=== PATIENT | female | born 1960 | race Caucasian/White ===

== ENCOUNTER 2017-10-12 10:16 | Emergency (ER) | payer SELFPAY ==
[~2017-10-12] VITALS: Ht 152.4 cm; Wt 47.5 kg
[~2017-10-12 10:16] MED LIST: DIAZ10 PO; PAXI10TA8 PO; PROC10TA PO; PROM50TA PO; TRAZ150T75 PO; XANA1TAB2 PO; ZANTTAB9 PO
[2017-10-12 10:21] VITALS: BP 124/74; PULSE 111; RESP 18; TEMP 100; O2SAT 99
[2017-10-12 10:39] VITALS: PULSE 107
--- NOTE | 2017-10-12 10:44 | PD ---
HPI Chief Complaint: Fall Time Seen by Provider: 10:36 Travel History International Travel<30 days: No Contact w/Intl Traveler<30days: No Traveled to known affect area: No History of Present Illness HPI 57-year-old female with a history of anxiety presents emergency department for evaluation of right shoulder, right elbow, and right knee pain after a fall that occurred yesterday. Says that she was sitting when her dog left for a cat pulling her to the ground. Says that she scraped her cheek however, denies headache, pain, blurred vision, neck pain or back pain. Says that she came in today because the shoulder pain is not getting any better and it is significant. Patient points to the anterior superior aspect of the shoulder and says it radiates into her deltoid region. She also points to the lateral aspect of her elbow. Says her shoulder pain is worse with movement that decreases with rest. Pain is moderate in severity. She denies numbness or change with extremity. She says that her knee feels mildly painful near the kneecap that is worse with movement and decreases with rest. Patient was ambulatory to emergency department today and her main concern again is her right shoulder. PFSH Past Medical History Arthritis: No Asthma: No Autoimmune Disease: No Blood Disorders: No Bipolar Disorder: Yes Anxiety: Yes (HISTORY OF PANIC ATTACKS) Depression: Yes Heart Rhythm Problems: No Cancer: No Cardiovascular Problems: No High Cholesterol: No Chemotherapy: No Chest Pain: No Congestive Heart Failure: No COPD: No Cerebrovascular Accident: No Diabetes: No Endocrine: No Gastrointestinal Disorders: No Glaucoma: No Genitourinary: No Headaches: Yes Hypertension: Yes Musculoskeletal: Yes (CHRONIC BACK PAIN) Neurologic: Yes Psychiatric: Yes Respiratory: No Myocardial Infarction: No Radiation Therapy: No Seizures: Yes Sleep Apnea: No Thyroid Disease: No ?: Unknown LMP: stopped 25 years ago Menopausal: Yes Ovarian Cysts: Yes Past Surgical History Abdominal Surgery: No AICD: No Cardiac Surgery: No Section: Yes (1988) Ear Surgery: No Endocrine Surgery: No Eye Surgery: No Genitourinary Surgery: No Gynecologic Surgery: Yes (, CYSTS REMOVED ON RIGHT OVARY) Neurologic Surgery: No Oral Surgery: No Pacemaker: No Thoracic Surgery: No Other Surgery: Yes (ONE IN 1993) Social History Alcohol Use: Yes () Tobacco Use: Yes (TRYING TO QUIT) Substance Use: No Allergies-Medications (Allergen,Severity, Reaction): Coded Allergies: No Known Allergies (Verified Adverse Reaction, Unknown, 10/12/17) Reported Meds & Prescriptions Reported Meds & Active Scripts Active Hydrocodone-Acetaminophen 5-325 mg Tab 1 Tab PO Q6H PRN 3 Days Phenergan (Promethazine HCl) 50 Mg Tab 50 Mg PO Q6H PRN Reported Paxil (Paroxetine HCl) Unknown Strength Tab 1 Tab PO DAILY Valium (Diazepam) 10 Mg Tab 10 Mg PO HS Trazodone (Trazodone HCl) 150 Mg Tab 150 Mg PO HS Xanax (Alprazolam) 1 Mg Tab 1 Mg PO QID PRN Review of Systems Except as stated in HPI: all other systems reviewed are Neg Physical Exam Narrative GENERAL: Well-nourished, well-developed patient, in NAD SKIN: Focused skin assessment warm/dry. No rashes or lesions. HEAD: Normocephalic. Leg abrasion over the right anterior cheek without underlying tenderness to palpation. Orbit and facial bones without tenderness palpation, deformities, ecchymosis. EYES: No scleral icterus. No injection or drainage. PERRLA, EOMI THROAT: No pharyngeal injection, exudates, or tonsillar hypertrophy. Airway is patent. NECK: Supple, trachea midline. No JVD or lymphadenopathy. No meningismus. No midline tenderness CARDIOVASCULAR: Regular rate and rhythm without murmurs, gallops, or rubs. RESPIRATORY: Breath sounds equal bilaterally. No accessory muscle use. No wheezes, rales, or rhonchi MUSCULOSKELETAL: No cyanosis, or edema. Right shoulder-tenderness palpation of the AC joint and posterior aspect of the musculature of her deltoid and tricep muscle. Ecchymosis over the bicep region , no deformities or crepitus noted. Neurovascularly intact right upper extremity Right elbow-no tenderness palpation the lateral epicondyles without crepitus or deformities. Neurovascular intact. BACK: No CVA tenderness. No rash. No point tenderness on palpation of the spine. Data Data Last Documented VS Vital Signs Date Time Temp Pulse Resp B/P (MAP) Pulse Ox O2 Delivery O2 Flow Rate FiO2 10/12/17 11:47 20 10/12/17 10:39 107 10/12/17 10:21 100.0 124/74 (91) 99 Orders Orders Acetamin-Hydrocod 325-5 Mg ([place] 5-325 (10/12/17 10:45) Shoulder, Complete (>2vws) (10/12/17 ) Elbow, Complete (4 Vws) (10/12/17 ) Mandatory Outpatient Referral (10/12/17 11:37) [facility] Medical Decision Making Medical Screen Exam Complete: Yes Emergency Medical Condition: Yes Differential Diagnosis Right shoulder rotator cuff injury, contusion, fracture. Right elbow contusion , fracture, abrasion. Right facial abrasion, avulsion, laceration, fracture Narrative Course 57-year-old female presents emergency department for evaluation of right shoulder, right elbow, right knee pain that started last night. Says that she was in a seated position when she was lunged forward by her dog landing on her right shoulder and subsequently hit her cheek. We discussed imaging of her head , neck, facial bones however, patient would like to defer. I am comfortable this is patient does not take any blood thinners. She denies any numbness or tingling of the extremities. She denies neck or back pain. She denies headache , blurred vision. She has no tenderness of her orbits, head, or neck. Vital signs demonstrate temperature 100.0, heart rate 111, blood pressure stable. Patient says that she smoked a cigarette just prior to coming to the emergency department today. Patient also has a history of anxiety and suspect that some of this is related. She denies subjective fevers or chills. I suspect that it is a warm day and her temperature is elevated because of this. X-rays ordered to rule out fracture. Hydrocodone for pain in the emergency department today. Last Impressions Shoulder X-Ray 10/12/17 0000 Signed Impressions: CONCLUSION: Proximal humeral fracture. Elbow X-Ray 10/12/17 0000 Signed Impressions: CONCLUSION: Unremarkable study. Patient will be discharged with hydrocodone. Mandatory referral placed. She is advised to follow-up with her primary care physician. Advised to call Dr. Darby's office she does not hear from them in 1-2 days. Diagnosis Primary Impression: Facial abrasion Qualified Codes: S00.81XA - Abrasion of other part of head, initial encounter Additional Impressions: Humerus fracture Qualified Codes: S42.201A - Unspecified fracture of upper end of right humerus , initial encounter for closed fracture Elbow contusion Qualified Codes: S50.01XA - Contusion of right elbow, initial encounter Referrals: Jhon Weller MD Primary Care Physician Patient Instructions: Arm Fracture in Adults (ED), General Instructions Additional Instructions: Use ice or heat for symptom relief. If no contraindications, you may use Tylenol or Motrin per package instructions for your pain. Use the sling as prescribed today. You may remove for showering however, I recommend leaving on until recommended removal by orthopedic physician. If symptoms persist or worsen, return to the emergency department. Follow up with your primary care physician within 2 days. If you do not get a phone call from the orthopedic physician within 1-2 days, I recommend you call them. Scripts Hydrocodone-Acetaminophen (Hydrocodone-Acetaminophen) 5-325 mg Tab 1 TAB PO Q6H Y for PAIN for 3 Days, #12 TAB 0 Refills Prov: Jacob Locke MD 10/12/17 Disposition: 01 DISCHARGE HOME Condition: Stable Sharifa Agrawal Oct 12, 2017 10:44
[2017-10-12] MEDS ORDERED: ACETAMINOPHEN/HYDROcodone 325 MG/5 MG TAB PO ONE (10:45)
--- NOTE | 2017-10-12 11:25 | RADRPT ---
EXAM DATE: 10/12/2017 11:14 AM EDT AGE/SEX: 57 years / Female INDICATIONS: Pulled down by the dog. CLINICAL DATA: This is the patient's initial encounter. Patient reports that signs and symptoms have been present for 1 day and indicates a pain score of 10/10. MEDICAL/SURGICAL HISTORY: None. None. COMPARISON: No prior [facility] exams available for comparison. FINDINGS: There is a complete fracture of right proximal humerus underneath the surgical neck with mild displac ement. There is no dislocation. CONCLUSION: Proximal humeral fracture. Electronically signed by: Chato Jameson MD 10/12/2017 11:23 AM EDT
--- NOTE | 2017-10-12 11:30 | RADRPT ---
EXAM DATE: 10/12/2017 11:18 AM EDT AGE/SEX: 57 years / Female INDICATIONS: Pulled down by a dog. CLINICAL DATA: This is the patient's initial encounter. Patient reports that signs and symptoms have been present for 1 day and indicates a pain score of 8/10. MEDICAL/SURGICAL HISTORY: None. None. COMPARISON: No prior [facility] exams available for comparison. FINDINGS: No definite fractures, or dislocations are identified. No definite lytic or sclerotic les ion is seen. CONCLUSION: Unremarkable study. Electronically signed by: Chato Jameson MD 10/12/2017 11:28 AM EDT
[2017-10-12] MEDS ORDERED: HYDR-3516 PO (11:38)
[2017-10-12 11:47] VITALS: RESP 20
== END 2017-10-12 12:22 | disposition home or self-care (01) ==
LOC: NEPK 10:16
DX: S00.81XA Abrasion of other part of head, initial encounter (principal); S42.201A Unspecified fracture of upper end of right humerus, initial encounter for closed fracture; S50.01XA Contusion of right elbow, initial encounter; M25.561 Pain in right knee; W19.XXXA Unspecified fall, initial encounter
CPT/HCPCS: 73030; 73080; 99283

== ENCOUNTER 2017-10-15 12:15 | Emergency (ER) | payer MEDICAID ==
[~2017-10-15] VITALS: Ht 152.4 cm; Wt 50.0 kg
[~2017-10-15 12:15] MED LIST changes: +HYDR-3516 PO; -PROC10TA PO; -ZANTTAB9 PO
[2017-10-15 12:20] VITALS: BP 126/76; PULSE 109; RESP 18; TEMP 99; O2SAT 98
--- NOTE | 2017-10-15 12:39 | PD ---
HPI Chief Complaint: Pain: Acute or Chronic Time Seen by Provider: 12:34 Travel History International Travel<30 days: No Contact w/Intl Traveler<30days: No Traveled to known affect area: No History of Present Illness HPI 57-year-old female presents emergency department for evaluation right arm pain. Patient is diagnosed with a proximal humerus fracture 3 days ago. She has been out of her Percocet. Patient states she is also noticed that her right hip is painful, exacerbated with ambulation or flexion. She does not recall any new injury but states her arm was so painful the other day when she was here , she did not even notice her hip. She denies any fever or chills. She is unable to get into orthopedic surgery until . She has no other symptoms to report at this time. PFSH Past Medical History Arthritis: No Asthma: No Autoimmune Disease: No Blood Disorders: No Bipolar Disorder: Yes Anxiety: Yes (HISTORY OF PANIC ATTACKS) Depression: Yes Heart Rhythm Problems: No Cancer: No Cardiovascular Problems: No High Cholesterol: No Chemotherapy: No Chest Pain: No Congestive Heart Failure: No COPD: No Cerebrovascular Accident: No Diabetes: No Endocrine: No Gastrointestinal Disorders: No Glaucoma: No Genitourinary: No Headaches: Yes Hypertension: Yes Musculoskeletal: Yes (CHRONIC BACK PAIN) Neurologic: Yes Psychiatric: Yes Respiratory: No Myocardial Infarction: No Radiation Therapy: No Seizures: Yes Sleep Apnea: No Menopausal: Yes Ovarian Cysts: Yes Past Surgical History Abdominal Surgery: No Cardiac Surgery: No Section: Yes (1988) Ear Surgery: No Endocrine Surgery: No Eye Surgery: No Genitourinary Surgery: No Gynecologic Surgery: Yes (, CYSTS REMOVED ON RIGHT OVARY) Neurologic Surgery: No Oral Surgery: No Pacemaker: No Thoracic Surgery: No Other Surgery: Yes (ONE IN 1993) Social History Alcohol Use: Yes ([facility]) Tobacco Use: Yes Substance Use: No Allergies-Medications (Allergen,Severity, Reaction): Coded Allergies: No Known Allergies (Verified Adverse Reaction, Unknown, 10/12/17) Reported Meds & Prescriptions Reported Meds & Active Scripts Active [place] (Hydrocodone-Acetaminophen) 5 Mg-325 Mg Tab 1 Tab PO Q6H PRN Reported Paxil (Paroxetine HCl) Unknown Strength Tab 1 Tab PO DAILY Valium (Diazepam) 10 Mg Tab 10 Mg PO HS Xanax (Alprazolam) 1 Mg Tab 1 Mg PO QID PRN Review of Systems Except as stated in HPI: all other systems reviewed are Neg Physical Exam Narrative GENERAL: Well-nourished, well-developed female patient in no acute distress SKIN: Focused skin assessment warm/dry. Ecchymosis on the right posterior hip. There is also some ecchymosis on the right proximal upper extremity. HEAD: Normocephalic. EYES: No scleral icterus. No injection or drainage. NECK: Supple, trachea midline. No JVD or lymphadenopathy. CARDIOVASCULAR: Regular rate and rhythm without murmurs, gallops, or rubs. RESPIRATORY: Breath sounds equal bilaterally. No accessory muscle use. GASTROINTESTINAL: Abdomen soft, non-tender, nondistended. MUSCULOSKELETAL: No cyanosis. Mild edema of the right distal lower extremity. Distal pulses are palpable. Patient flex and extend all the digits of the affected extremity. Sensation is intact. Sling is in place. BACK: Nontender without obvious deformity. No CVA tenderness. Data Data Last Documented VS Vital Signs Date Time Temp Pulse Resp B/P (MAP) Pulse Ox O2 Delivery O2 Flow Rate FiO2 10/15/17 12:20 99.0 109 18 126/76 (93) 98 Orders Orders Hip, Uni(Ap&Lat) W Ap Pelvis (10/15/17 ) Ketorolac Inj (Toradol Inj) (10/15/17 12:45) Acetamin-Hydrocod 325-5 Mg ([place] 5-325 (10/15/17 12:45) Ed Discharge Order (10/15/17 13:16) [facility] Medical Decision Making Medical Screen Exam Complete: Yes Emergency Medical Condition: Yes Medical Record Reviewed: Yes Differential Diagnosis Fracture pain versus reinjury versus contusion versus sprain versus narcotic seeking Narrative Course 57-year-old female presents emergency department requesting more pain control for her proximal humerus fracture. Patient appears without distress. The arm is neurovascularly intact. X-ray imaging of the hip is negative. I discussed the patient with my attending. She will be given 12 Lortab. She is instructed to keep her appointment with orthopedic surgery. She agrees to return immediately with acute worsening of symptoms. Diagnosis Primary Impression: Arm pain, right Referrals: Orthopaedic Surgeon Primary Care Physician Patient Instructions: Arm Fracture in Adults (ED), General Instructions Additional Instructions: Ice to the affected area Follow-up with orthopedic surgeon Keep your appointment Return immediately with acute worsening of symptoms Med/Other Pt SpecificInfo: Prescription(s) given Scripts Hydrocodone-Acetaminophen ([place]) 5 Mg-325 Mg Tab 1 TAB PO Q6H Y for PAIN, #12 TAB 0 Refills Prov: Jolene Hill 10/15/17 Disposition: 01 DISCHARGE HOME Condition: Stable Jolene Hill Oct 15, 2017 12:39
[2017-10-15] MEDS ORDERED: ACETAMINOPHEN/HYDROcodone 325 MG/5 MG TAB PO ONE (12:45)
[2017-10-15] MEDS ORDERED: KETOROLAC TROMETHAMINE 60 MG/2 ML (IM) VIAL IM ONE (12:45)
--- NOTE | 2017-10-15 13:10 | RADRPT ---
EXAM DATE: 10/15/2017 1:05 PM EDT AGE/SEX: 57 years / Female INDICATIONS: Right hip pain. Patient was pulled down by her dog 5 days ago. CLINICAL DATA: This is the patient's initial encounter. Patient reports that signs and symptoms have been present for 4 - 6 days and indicates a pain score of 5/10. MEDICAL/SURGICAL HISTORY: None. None. COMPARISON: No prior exams available for comparison. FINDINGS: Bony structures are intact and in normal alignment. Joints are intact without dislocation or signifi cant arthropathy. Osseous density is normal. Soft tissues are unremarkable. No radiopaque foreign bodies seen. CONCLUSION: No evidence of recent bony injury. Electronically signed by: Jaime Castellanos MD 10/15/2017 1:09 PM EDT
[2017-10-15] MEDS ORDERED: NORC5TAB PO (13:19)
== END 2017-10-15 13:39 | disposition home or self-care (01) ==
LOC: NEPD 12:15
DX: M79.601 Pain in right arm (principal); M25.551 Pain in right hip; F31.9 Bipolar disorder, unspecified; F41.8 Other specified anxiety disorders; I10 Essential (primary) hypertension; Z87.39 Personal history of other diseases of the musculoskeletal system and connective tissue; Z86.69 Personal history of other diseases of the nervous system and sense organs
CPT/HCPCS: 73502; 96372; 99283; J1885